=== PATIENT | female | born 1965 | race Two or more races ===

== ENCOUNTER → 2017-01-07 | Outpatient (CLI) | payer OTHER | LOC: BRMIMAGING 09:44 | PROVIDERS: ATTEND Internal Medicine | DX: M19.042 Primary osteoarthritis, left hand (principal); M20.12 Hallux valgus (acquired), left foot; M21.612 Bunion of left foot; M19.072 Primary osteoarthritis, left ankle and foot; M77.9 Enthesopathy, unspecified; M17.0 Bilateral primary osteoarthritis of knee; M50.322 Other cervical disc degeneration at C5-C6 level; M48.02 Spinal stenosis, cervical region; M43.02 Spondylolysis, cervical region; M50.223 Other cervical disc displacement at C6-C7 level | CPT/HCPCS: 72052-PO; 73130-PO; 73562-PO; 73630-PO ==

== ENCOUNTER → 2017-08-30 | Outpatient (CLI) | payer OTHER | LOC: BRMIMAGING 10:48 | PROVIDERS: ATTEND Internal Medicine | DX: Z03.89 Encounter for observation for other suspected diseases and conditions ruled out (principal) | CPT/HCPCS: 71046-PO ==

== ENCOUNTER → 2018-05-02 | Outpatient (CLI) | payer OTHER | LOC: BRMIMAGING 08:54 | PROVIDERS: ATTEND Internal Medicine | DX: M71.22 Synovial cyst of popliteal space [Baker], left knee (principal); M71.21 Synovial cyst of popliteal space [Baker], right knee; R74.0 Nonspecific elevation of levels of transaminase and lactic acid dehydrogenase [LDH]; M06.9 Rheumatoid arthritis, unspecified; M17.0 Bilateral primary osteoarthritis of knee | CPT/HCPCS: 93970-PO ==